=== PATIENT | male | born 1980 | race Caucasian/White ===

== ENCOUNTER 2017-04-29 19:18 | Emergency (ER) | payer OTHER ==
[~2017-04-29] VITALS: Ht 162.6 cm; Wt 60.5 kg
[2017-04-29 19:31] VITALS: Ht 162.6 cm; Wt 60.5 kg
[2017-04-29 20:47] VITALS: BP 119/76
== END 2017-04-29 20:47 | disposition home or self-care (01) ==
LOC: ED 19:18
DX: S20.212A Contusion of left front wall of thorax, initial encounter (principal); W22.8XXA Striking against or struck by other objects, initial encounter; Y93.02 Activity, running; Y92.89 Other specified places as the place of occurrence of the external cause; Y99.8 Other external cause status
CPT/HCPCS: J1885